=== PATIENT | male | born 1960 | race Caucasian/White ===

== ENCOUNTER 2020-02-23 07:30 | Inpatient (IN) | payer BC ==
[2020-03-12 16:11] VITALS: BMI 39.5
[2020-03-16] MEDS ORDERED: MIDAZOLAM 2 MG/2 ML VIAL IV PRN (07:00)
[2020-03-16] MEDS ORDERED: LIDOCAINE 1% (10MG/ML) FOR IV START INTRADERMA PRN (18:17)
[2020-03-16] MEDS ORDERED: DEXAMETHASONE SOD PHOSPHATE 4 MG/ML 1 ML VIAL IV ONE (18:17)
[2020-03-17] MEDS ORDERED: ceFAZolin 1,000 MG in SODIUM CHLORIDE 0.9% IRRIGATIO 1,000 ML IRRIGATION PRN (05:00)
[2020-03-17] MEDS ORDERED: HYDROmorphone 0.5 MG/0.5 ML SYRINGE IVP PRN (07:00)
[2020-03-17] MEDS ORDERED: ONDANSETRON 4 MG/2 ML VIAL ONE (07:03)
[2020-03-17] MEDS: LACTATED RINGERS 1,000 ML IV SCH ×2 (07:10→18:04)
[2020-03-17 07:22] LABS: Glucose,Whole Blood 154 mg/dL (75-99)
[2020-03-17] MEDS ORDERED: ROCURONIUM 10 MG/ML (5 ML VIAL) IV ONE (07:27)
[2020-03-17] MEDS ORDERED: PHENYLEPHRINE-0.9% NACL SYG 1,000 MCG/10 ML SYRINGE ONE (07:27)
[2020-03-17] MEDS ORDERED: NEOSTIGMINE 1 MG/ML 10 ML VIAL ONE (07:27)
[2020-03-17] MEDS ORDERED: WATER FOR INJECTION, STERILE 10 ML VIAL IV ONE (07:27)
[2020-03-17] MEDS ORDERED: VASOPRESSIN 20 UNIT/ML 1 ML VIAL ONE (07:27)
[2020-03-17] MEDS ORDERED: GLYCOPYRROLATE 0.2 MG/ML 2 ML VIAL ONE (07:27)
[2020-03-17] MEDS ORDERED: fentaNYL (PF) 50 MCG/ML 2 ML AMP ONE (07:27)
[2020-03-17] MEDS ORDERED: LIDOCAINE 1% INJ 10MG/ML (20 ML MDV) ONE (07:27)
[2020-03-17] MEDS ORDERED: PROPOFOL 10 MG/ML 20 ML VIAL IV ONE (07:27)
[2020-03-17] MEDS ORDERED: SUCCINYLCHOLINE CHLORIDE 100 MG/5 ML SYR IV ONE (07:27)
[2020-03-17] MEDS ORDERED: MIDAZOLAM 2 MG/2 ML VIAL ONE (07:27)
[2020-03-17] MEDS ORDERED: HYDROmorphone (PF) 1 MG/ML ONE (07:27)
[2020-03-17] MEDS ORDERED: ePHEDrine SULFATE/0.9% NACL/PF 50 MG/5 ML SYRINGE IV ONE (07:27)
[2020-03-17] MEDS ORDERED: BUPIVACAINE (PF) 0.25% 30 ML VIAL SQ ONE (08:17)
[2020-03-17] MEDS ORDERED: LIDOCAINE 2%-EPI 1:100,000 20 ML VIAL SQ ONE (08:17)
[2020-03-17] MEDS ORDERED: THROMBIN (BOVINE) 5,000 UNIT VIAL TOPICAL ONE (08:21)
[2020-03-17] MEDS ORDERED: GELATIN SPONGE,ABSORB (LARGE) 1 EACH SPONGE TOPICAL ONE (08:21)
[2020-03-17] MEDS ORDERED: LACTATED RINGERS 1,000 ML IV ONE (08:30)
[2020-03-17] MEDS ORDERED: ONDANSETRON 4 MG/2 ML VIAL IVP PRN (10:29)
[2020-03-17] MEDS ORDERED: HYDROcodone/APAP 5-325MG 1 EACH TAB PO PRN (10:29)
--- NOTE | 2020-03-17 10:30 | XR ---
EXAM TYPE: LUMBAR SPINE X RAY SERIES COMPARISON: NONE HISTORY: Postsurgical changes TECHNIQUE: 2 views are submitted. FINDINGS: 2 intraoperative views demonstrate postsurgical changes. Resolution is limited by portable technique. Postsurgical changes appear in near-anatomic alignment. IMPRESSION: 1. Postoperative change
[2020-03-17] MEDS ORDERED: MAGNESIUM HYDROXIDE 2,400 MG/10 ML CUP PO PRN (10:32)
[2020-03-17] MEDS ORDERED: HYDROmorphone 1 MG/ML 1 ML SYRINGE IVP PRN (10:32)
--- NOTE | 2020-03-17 10:37 | P.OP ---
Date of Procedure: 03/17/20 Preoperative Diagnosis: Spondylolisthesis L3 4, spinal stenosis L3 4, degenerative disc disease, low back pain, lower extremity radiculopathy Postoperative Diagnosis: Same Anesthesia: GETA Pathology: none sent Condition: stable Disposition: PACU Description of Procedure: DESCRIPTION OF PROCEDURE(S): BRIEF OPERATIVE NOTE Preoperative Diagnosis: Spondylolisthesis L3 4 , spinal stenosis , lower extremity radiculopathy, lower extremity weakness, neurogenic claudication, low back pain, degenerative disc disease Postoperative Diagnosis: Same Procedure: Laminectomy and decompression L3 [address] navigation aided Minimally invasive Posterior lateral decompression and facet fusion L3 4 Minimally invasive Transforaminal lumbar interbody fusion for a 360 fusion L3 4 Discectomy for decompression L3 4 Placement of interbody graft L3 4 Use of computer navigation for fusion Local autogenous bone grafting Aspiration of bone marrow from the vertebral body pedicle L3 on the right Use of bone graft extenders Surgeon: Dr. Forrest Braille Operator: Kalia NAJERA who is present throughout the entire the case persistence during positioning, dissection, exposure, visualization, and all crucial elements of the case as well as closure. Anesthesia: General anesthesia per Estimated blood loss: Approximately 200 mL Complications: None apparent Components implanted: K2M minimally invasive Raymond pedicle screw system withscrews measuring 6.5 mm in diameter to rods one [place] interbody cage with 10 mL of osteo amp bio4 bone graft substitute and 30 mL of the BX bone fibers to supplement the local autogenous bone graft and bone marrow aspirate Disposition: To recovery room in good stable condition. OPERATIVE INDICATIONS The patient has had severe issues at their lower extremity in her lower back over the past several years with significant worsening over the past several months. Over the past few months the patient had pain at her back and his right lower extremity. The patient is having radicular symptoms at his right lower extremity with weakness. The patient is having significant pain in her back. They are unable to obtain any comfort. We did aggressive conservative treatment with medications therapy and interventional pain management however she was not having any relief. The patient had a significant spondylolisthesis with severe degenerative changes at L3 4 with stenosis which correlated with his low back and lower extremity symptoms. The patient also showed evidence of a listhesis with some dynamic instability. The patient has been through conservative treatment. We discussed various treatment options including surgery, and the patient wishes to proceed with surgery We discussed the risk, patient's alternatives and benefits of surgery including but not limited to, ris k of bleeding risk of infection, risk of need for further surgery, risk of decreased, loss of motion, muscle function, malunion nonunion, hardware failure, nerve damage, paralysis, heart attack, blindness and . They understood issues with the current pandemic and the possibility of exposure. OPERATIVE SUMMARY After discussing all the risks, patient alternatives and benefits at length, the patient elected to proceed with surgical intervention, signed informed consent, and presented for their procedure. The patient was seen and examined in the preoperative holding area and the surgical site was marked. The patient was given antibiotics and brought to the operating room. The patient was sedated and intubated by anesthesia in standard fashion. The patient was positioned on to the operating room table in a prone position on the appropriate frame which was well-padded and well molded. We were careful to pad any bony prominences and pressure points. We were careful to maintain the patient's cervical spine and good neutral alignment and position throughout. The patient was prepped and draped in a normal standard fashion. An appropriate timeout and keystone protocol performed. We were able to proceed with the surgery. The local wound area was infiltrated with local anesthetic. Over the right iliac crest I was able to make small stab incisions and establish a guidepin screw fixation to the iliac crest 2. I was able place the computer referencing device over the guidepins to establish an appropriate reference point for the Ziem CT navigation. We then were able to place patient in an appropriate drape and do a navigation spin for visualization and 3-D reconstruction of the lumbar spine. I was able utilize C-arm guidance and navigation to establish appropriate position over the pedicles bilaterally at the appropriate levels at L3 4. With the appropriate levels confirmed was able to make small stab incisions over the appropriate pedicle sites bilaterally. Utilizing the computer navigation device I was able to establish bony landmarks at the right iliac crest for a bony reference point for the navigation device. I was able to establish a Jamshidi needle over the lateral aspect of the pedicle and advanced the trocar into the pedicle being careful not to breech superiorly inferiorly medially or laterally using computer navigation device. Position was confirmed regularly with AP and lateral images on C-arm and with the computer navigation device at the appropriate levels bilaterally. I was able to establish the trocar into the pedicle appropriately into the posterior aspect of the vertebral body bilaterally at the appropriate levels. This was done at each of the pedicle positions and each of the vertebrae. At the superior vertebrae of L3 on the right I was able to take approximately 25 mL of bone aspiration for use later in the case to supplement the allograft and autograft bone. I was able place the guidewire into the trocar and into the vertebral body appropriately under C-arm guidance. Dissection was taken down over the wire to the appropriate starting position for the screw placed. The appropriate length screw was chosen, threaded over the guidewire and screwed appropriately into the pedicle and vertebral body under C-arm guidance in excellent alignment and position with good bony purchase. This is done at each of the screw sites at the appropriate levels at L3 and L4 bilaterally. With the screws intact I extended the incision to connect the screw hole sites on the most symptomatic side on the right. I dissected down to establish access over the pars and lamina to the base of the spinous process. I was able to expose the facet joint. The capsule the facet was taken down and showed some facet arthrosis at the joint. I was able to use a combination of curettes and Kerrison rongeurs and a high-speed drill to take down the facet joint and do a facetectomy. I was able get excellent foraminal decompression and central decompression with undermining across midline to perform a laminectomy centrally and contralaterally. As able get good central decompression. The ligamentum flavum was taken down to further decompress centrally and at bilateral neural foramen. I was able to expose the disc space and visualize the traversing nerve root. Note was made of some disc protrusion and disc herniation that was abutting the traversing nerve root at the level causing further compression of the nerve root. I was able to establish a annulotomy at the appropriate level protecting soft tissue and neural structures. Note was made of some disc desiccation at the disc. I performed a complete discectomy with accommodation of curettes and rasps and scrapers. I was able get good endplate preparation at the disc space. I sized for the appropriate size interbody spacer protecting the soft tissue and neural structures. The wound was copiously irrigated and suctioned dry. There is no evidence of any dural tear or leak. I was able to pack the disc space with local autogenous bone graft as well as a small amount of bone graft which was also placed into the interbody cage itself. Protecting the soft tissue structures and neural structures I was able place the interbody cage in good alignment and good position with good fit and fill at the interbody space at L3 and L4. Position was confirmed with C-arm guidance. Good hemostasis maintained. There is no evidence of any dural tear or leak. The wound was irrigated and suctioned dry. With the hardware intact, intraoperative C-arm imaging was again taken which showed good alignment and position of the hardware at the appropriate levels. We were then able to measure, contour and place the rods and appropriate hardware bilaterally. I was able to place capcrews, tighten them down, and torque them with the torque screwdriver appropriately. With this intact I was able to place the local autogenous bone graft with additional bone graft en hancer as necessary into the posterior lateral gutters over the decorticated transverse processes and facet joints on the contralateral side. The remainder of the bone graft was placed over the facet joint on the contralateral side after taking down the facet joint capsule. With the bone graft intact, a stable construct, and good decompression at the appropriate levels of L3 4, we were able to proceed with closure. Good hemostasis was maintained. There is no evidence of dural tear or leak. The fascia was closed for a watertight closure. he subcuticular tissue was closed with absorbable suture. The wound was cleaned and dried and dressed with the appropriate dressing. The drapes were broken down. The patient was gently rolled back onto their hospital bed being careful to maintain their cervical spine and good neutral alignment and position. They were woken up by anesthesia, extubated, and brought to the recovery room in good stable condition. The patient will be admitted to the hospital for appropriate postoperative care, medical management and monitoring. We will continue to follow them closely about the postoperative course.
--- NOTE | 2020-03-17 10:42 | FL ---
EXAMINATION TYPE: FL guidance operating room DATE OF EXAM: 03/17/2020 HISTORY: Fluoroscopy time 18 seconds of fluoroscopy provided. IMPRESSION: 1. Fluoroscopy time.
[2020-03-17 10:50] LABS: Glucose,Whole Blood 198 mg/dL (75-99)
[2020-03-17] MEDS: SODIUM CHLORIDE 0.9% 1,000 ML IV SCH (11:35)
[2020-03-17] MEDS: HYDROmorphone 0.5 MG/0.5 ML SYRINGE IVP PRN ×2 (14:19→19:52)
[2020-03-17 17:08] LABS: Glucose,Whole Blood 177 mg/dL (75-99)
[2020-03-17] MEDS: lisinopriL 20 MG TAB PO SCH (19:47)
[2020-03-17] MEDS: BENZOCAINE/MENTHOL LOZENG 1 EACH LOZENGE MUCOUS MEM PRN ×2 (19:47→23:11)
[2020-03-17] MEDS: metFORMIN 500 MG TAB PO SCH (19:47)
[2020-03-17 20:29] LABS: Glucose,Whole Blood 270 mg/dL (75-99)
[2020-03-17] MEDS ORDERED: PRAVASTATIN SODIUM 20 MG TAB PO SCH (21:00)
[2020-03-17] MEDS: HYDROcodone/APAP 5-325MG 1 EACH TAB PO PRN (23:11)
[2020-03-18] MEDS: SODIUM CHLORIDE 0.9% 1,000 ML IV SCH (02:07)
[2020-03-18] MEDS: BENZOCAINE/MENTHOL LOZENG 1 EACH LOZENGE MUCOUS MEM PRN ×2 (03:08→07:37)
[2020-03-18 06:53] LABS: Glucose,Whole Blood 169 mg/dL (75-99)
[2020-03-18 07:24] VITALS: BP 137/99; PULSE 118; RESP 25; TEMP 99.2
[2020-03-18] MEDS ORDERED: PANTOPRAZOLE 40 MG TABLET PO SCH (07:30)
[2020-03-18] MEDS: HYDROcodone/APAP 5-325MG 1 EACH TAB PO PRN (07:38)
--- NOTE | 2020-03-18 08:00 | P.DS ---
Providers Date of admission: 03/17/20 06:30 Attending physician: Dari Forrest Consults: 03/17/20 17:16 Consult Physician Routine Consulting Provider: Darian Malik Consult Reason/Comments: medical management Do you want consulting provider notified?: Yes Primary care physician: Stated None Hospital Course: The patient presented on the day of admission as per their operative note. He has spondylolisthesis and spinal stenosis L3 4 and has been having severe issues from this. He presented on his day of admission yesterday for his procedure with minimally invasive decompression and fusion L3 4 as per his operative note. He feels his back is sore but is doing well. He is already been up to the side of the bed but has not been up yet with physical therapy. He is tolerating his diet. He feels he is taking his oral medications regularly but they're helping to control his pain adequately. He still has his Benavides intact. He feels his legs are doing well. He is eating his breakfast and tolerating it well currently. Physical Exam The incision site is clean dry and intact. There is no erythema no drainage. There is no purulence no evidence of infection. No significant swelling. His b ack is clear Abdomen soft and nontender. Chest has good excursion with deep inspiration and expiration. The patient has active and passive range of motion intact at the upper and lower extremities. There is no acute change in neurologic status. He has sustained dorsiflexion plantar flexion and EHL intact. He is able to lift his legs up off the bed independently. Hospital Course Postoperative day #1 status post minimally invasive decompression and fusion L3 4 for his spondylolisthesis with spinal stenosis and lower extremity radiculopathy The patient feels that his legs are doing well. His back is sore but he feels that the pain is controlled decent slightly with medication. He has not yet been up with physical therapy. He still has his Benavides intact. The patient has been making good progress postoperatively. If he is able to mobilize adequately and independently once he is seen with therapy and he can void freely once his Benavides is discontinued and he may be able to be discharged home today. When he has completed the prophylactic antibiotics without any signs or symptoms of infection later today when his antibiotic can be discontinued. The patient has been able to advance their diet, and is tolerating diet adequately. The pain was initially controlled with IV medications and is now controlled appropriately with oral medications. The patient has been able to increase their mobilization. If he can continues to make progress and continues to be independent with his mobility and he could be discharged home. If he is not able to void well or be independent with his ambulation then he needs to stay overnight tonight for continued recovery and safety The patient has progressed appropriately thus far. I think they are in good stable condition for possible discharge today, if he is able to void freely on his own and mobilize well on his own once he is seen with physical therapy. They will be sent home with appropriate prescriptions. I answered their questions to the best of my ability in a language that they can understand and they are agreeable with the plan. They will follow up as directed in approximately 2 weeks or sooner if he is having problems. Patient Condition at Discharge: Good Plan - Discharge Summary Discharge Rx Participant: Yes New Discharge Prescriptions: New HYDROcodone/APAP 5-325MG [[place] 5] 1 - 2 each PO Q4H PRN #56 tab PRN Reason: Pain No Action metFORMIN HCL [Metformin HCl ER] 500 mg PO BID Pravastatin Sodium [Pravachol] 20 mg PO HS Aspirin [Adult Low Dose Aspirin EC] 81 mg PO BID Pantoprazole Sodium [Protonix] 40 mg PO DAILY Celecoxib [CeleBREX] 200 mg PO DAILY lisinopriL [Zestril] 20 mg PO BID Trulicity(Unknown Dose) SQ SA Discharge Medication List Aspirin [Adult Low Dose Aspirin EC] 81 mg PO BID 07/26/15 [History] Pravastatin Sodium [Pravachol] 20 mg PO HS 07/26/15 [History] metFORMIN HCL [Metformin HCl ER] 500 mg PO BID 07/26/15 [History] Celecoxib [CeleBREX] 200 mg PO DAILY 03/12/20 [History] Pantoprazole Sodium [Protonix] 40 mg PO DAILY 03/12/20 [History] Trulicity(Unknown Dose) SQ SA 03/12/20 [History] lisinopriL [Zestril] 20 mg PO BID 03/12/20 [History] HYDROcodone/APAP 5-325MG [[place] 5] 1 - 2 each PO Q4H PRN #56 tab 03/18/20 [Rx] Follow up Appointment(s)/Referral(s): Pasia,E Christian, DO [Doctor of Osteopathic Medicine] - 2 Weeks Discharge Disposition: HOME SELF-CARE
[2020-03-18 08:48] LABS: Basophils # (A) 0.02 X 10*3/uL (0.00-0.10); Basophils % (A) 0.2 %; Eosinophils # (A) 0.01 X 10*3/uL (0.04-0.35); Eosinophils % (A) 0.1 %; HCT 37.9 % (39.6-50.0); HGB 12.7 g/dL (13.0-17.0); Lymphocytes # (A) 0.81 X 10*3/uL (0.90-5.00); Lymphocytes % (A) 7.5 %; MCH 30.5 pg (27.0-32.0); MCHC 33.5 g/dL (32.0-37.0); MCV 90.9 fL (80.0-97.0); Mean Platelet Volume 11.1 fL (9.5-12.2); Monocytes # (A) 0.71 X 10*3/uL (0.20-1.00); Monocytes % (A) 6.6 %; Neutrophils # (A) 9.18 X 10*3/uL (1.80-7.70); Neutrophils % (A) 85.2 %; Platelet Count 187 X 10*3/uL (140-440); RBC 4.17 X 10*6/uL (4.40-5.60); RDW 14.1 % (11.5-14.5); WBC 10.77 X 10*3/uL (4.50-10.00)
[2020-03-18] MEDS ORDERED: SENNOSIDES-DOCUSATE SODIUM 1 EACH TAB PO SCH (09:00)
[2020-03-18 09:27] LABS: African American GFR (CKD) 94.4 (60.0-200.0); Anion Gap 9.5 mmol/L (4.00-12.00); Calcium 8.7 mg/dL (8.7-10.3); Carbon Dioxide 25.5 mmol/L (21.6-31.8); Non-African American GFR(CKD) 81.4 (60.0-200.0); Potassium 4.8 mmol/L (3.5-5.5)
[2020-03-18] MEDS: metFORMIN 500 MG TAB PO SCH (10:12)
[2020-03-18] MEDS: lisinopriL 20 MG TAB PO SCH (10:12)
[2020-03-18] MEDS ORDERED: ASPIRIN 81 MG PO SCH (21:00)
== END 2020-03-18 13:22 | disposition home or self-care (01) | DRG 455 ==
LOC: 2ORMAIN 03-17 06:30 → 4SSUR 03-17 11:05
PROVIDERS: ADMIT Orthopaedic Surgery Orthopaedic Surgery of the Spine; ATTEND Orthopaedic Surgery Orthopaedic Surgery of the Spine
PROC: 0SG00AJ Fusion of Lumbar Vertebral Joint with Interbody Fusion Device, Posterior Approach, Anterior Column, Open Approach (ICD-10-PCS; 2020-03-17)
PROC: 0ST20ZZ Resection of Lumbar Vertebral Disc, Open Approach (ICD-10-PCS; 2020-03-17)
PROC: 01NB0ZZ Release Lumbar Nerve, Open Approach (ICD-10-PCS; 2020-03-17)
PROC: 0SG0071 Fusion of Lumbar Vertebral Joint with Autologous Tissue Substitute, Posterior Approach, Posterior Column, Open Approach (ICD-10-PCS; principal; 2020-03-17 07:30)
DX: M48.062 Spinal stenosis, lumbar region with neurogenic claudication (principal); E11.9 Type 2 diabetes mellitus without complications; M47.816 Spondylosis without myelopathy or radiculopathy, lumbar region; M47.817 Spondylosis without myelopathy or radiculopathy, lumbosacral region; M51.16 Intervertebral disc disorders with radiculopathy, lumbar region; M43.16 Spondylolisthesis, lumbar region; I10 Essential (primary) hypertension; E78.5 Hyperlipidemia, unspecified; K21.9 Gastro-esophageal reflux disease without esophagitis; Z79.82 Long term (current) use of aspirin; Z79.84 Long term (current) use of oral hypoglycemic drugs; Z79.899 Other long term (current) drug therapy; Z87.891 Personal history of nicotine dependence
CPT/HCPCS: 72100; 80048; 85025; 86850; 86900; 86901; 87070

== ENCOUNTER → 2020-03-02 | Outpatient (CLI) | payer BC ==
--- NOTE | 2020-03-02 14:04 | XR ---
EXAMINATION TYPE: XR chest 2V DATE OF EXAM: 03/02/2020 COMPARISON: NONE HISTORY: Spinal stenosis, Z01.818 TECHNIQUE: Frontal and lateral views of the chest are obtained. FINDINGS: There is no focal air space opacity, pleural effusion, or pneumothorax seen. The cardiac silhouette size is within normal limits. The osseous structures are intact. The aorta is dense. IMPRESSION: No acute cardiopulmonary process.
== END | disposition home or self-care (01) ==
LOC: LABPAT 10:44
PROVIDERS: ATTEND Orthopaedic Surgery Orthopaedic Surgery of the Spine
DX: Z01.818 Encounter for other preprocedural examination (principal); M48.00 Spinal stenosis, site unspecified
CPT/HCPCS: 71046; 93005

== ENCOUNTER → 2020-03-10 | Outpatient (CLI) | payer SELFPAY ==
[2020-03-10 15:24] LABS: Appearance,Urine Clear (Clear); Basophils # (A) 0.1 k/uL (0-0.2); Basophils % (A) 1 %; Bilirubin,Urine Negative (Negative); Blood,Urine Negative (Negative); Color,Urine Yellow; Eosinophils # (A) 0.2 k/uL (0-0.7); Eosinophils % (A) 5 %; Glucose,Urine (UA) Negative (Negative); HCT 41.2 % (39.0-53.0); HGB 14.3 gm/dL (13.0-17.5); Ketones,Urine Negative (Negative); Leukocyte Esterase,Urine Negative (Negative); Lymphocytes # (A) 1.4 k/uL (1.0-4.8); Lymphocytes % (A) 27 %; MCH 30.8 pg (25.0-35.0); MCHC 34.7 g/dL (31.0-37.0); MCV 88.8 fL (80.0-100.0); Mean Platelet Volume 7.9; Monocytes # (A) 0.3 k/uL (0-1.0); Monocytes % (A) 6 %; Neutrophils # (A) 2.9 k/uL (1.3-7.7); Neutrophils % (A) 58 %; Nitrite,Urine Negative (Negative); Platelet Count 179 k/uL (150-450); Protein,Urine Negative (Negative); RBC 4.63 m/uL (4.30-5.90); RDW 13.9 % (11.5-15.5); Specific Gravity,Urine 1.019 (1.001-1.035); Urobilinogen,Urine <2.0 mg/dL (<2.0)
[2020-03-10 15:32] LABS: INR 0.9 (<1.2); Partial Thromboplastin Time 23.2 sec (22.0-30.0); Prothrombin Time 9.8 sec (9.0-12.0)
[2020-03-10 15:42] LABS: African American GFR (CKD) >90 (>60 ml/min/1.73 sqM); Anion Gap 9 mmol/L; Blood Urea Nitrogen 25 mg/dL (9-20); Calcium 9.4 mg/dL (8.4-10.2); Carbon Dioxide 26 mmol/L (22-30); Chloride 103 mmol/L (98-107); Glucose 130 mg/dL (74-99); Non-African American GFR(CKD) >90 (>60 ml/min/1.73 sqM); Potassium 4.7 mmol/L (3.5-5.1); Sodium 138 mmol/L (137-145)
== END | disposition home or self-care (01) ==
LOC: LABPAT 14:00
PROVIDERS: ATTEND Orthopaedic Surgery Orthopaedic Surgery of the Spine
DX: Z01.818 Encounter for other preprocedural examination (principal); M48.00 Spinal stenosis, site unspecified
CPT/HCPCS: 36415; 80048; 81003; 85025; 85610; 85730

== ENCOUNTER → 2020-03-15 | Outpatient (CLI) | payer BC | END | disposition home or self-care (01) | LOC: LABPAT 12:32 | PROVIDERS: ATTEND Orthopaedic Surgery Orthopaedic Surgery of the Spine | DX: Z01.812 Encounter for preprocedural laboratory examination (principal) | CPT/HCPCS: 87070 ==

== ENCOUNTER → 2020-06-18 | Outpatient (CLI) | payer BC | END | disposition home or self-care (01) | LOC: LABWHC1 15:22 | PROVIDERS: ATTEND Physician Assistant Medical | DX: I10 Essential (primary) hypertension (principal); R07.9 Chest pain, unspecified | CPT/HCPCS: 36415; 93005 ==

== ENCOUNTER 2020-10-01 06:31 | Day surgery (SDC) | payer BC ==
[2020-09-28 15:16] VITALS: BMI 41.9
[~2020-10-01 06:31] MED LIST: ALPRAZolam 0.25 MG TAB PO PRN; ALPRAZolam 0.5 MG TAB PO PRN; ASPIRIN 325 MG TAB PO STA; ATORVASTATIN 80 MG TAB PO STA; NITROGLYCERIN SL TABS 0.4 MG TAB SUBLINGUAL PRN; SODIUM CHLORIDE 0.9% 1,000 ML in EMPTY BAG 1 BAG IV ONE
[2020-10-01] MEDS ORDERED: SODIUM CHLORIDE 0.9% 1,000 ML IV ONE (06:45)
[2020-10-01 07:01] LABS: Glucose,Whole Blood 166 mg/dL (75-99)
[2020-10-01 07:06] VITALS: RESP 16; TEMP 98.9
[2020-10-01] MEDS ORDERED: VERAPAMIL 2.5 MG/ML 2 ML AMP ONE (07:20)
[2020-10-01] MEDS ORDERED: LIDOCAINE 1% INJ 10MG/ML (20 ML MDV) ONE (07:20)
[2020-10-01] MEDS ORDERED: fentaNYL (PF) 50 MCG/ML 2 ML AMP ONE (07:55)
[2020-10-01] MEDS ORDERED: fentaNYL (PF) 50 MCG/ML 2 ML AMP IV ONE ×2 (07:59)
[2020-10-01] MEDS ORDERED: MIDAZOLAM 2 MG/2 ML VIAL IV ONE (07:59)
[2020-10-01] MEDS ORDERED: LIDOCAINE 1% INJ 10MG/ML (20 ML MDV) SQ ONE (08:00)
[2020-10-01] MEDS ORDERED: VERAPAMIL SYRINGE (5 MG/10 ML) INTRAARTER ONE (08:05)
[2020-10-01] MEDS ORDERED: HEPARIN SODIUM 1,000 UN/ML (10ML VL) ONE (08:06)
[2020-10-01] MEDS ORDERED: HEPARIN SODIUM 1,000 UN/ML (10ML VL) IV ONE (08:10)
[2020-10-01] MEDS ORDERED: IOPAMIDOL-370 125ML BTL INJ ONE (08:23)
[2020-10-01] MEDS ORDERED: RX INFO: IV CONTRAST WAS GIVEN 1 EACH MISC MISCELLANE PRN (08:33)
--- NOTE | 2020-10-01 08:41 | P.CARDCATH ---
Date of Procedure: 10/01/20 Preoperative Diagnosis: Chest pains, nonsustained V. tach and multiple risk factors Postoperative Diagnosis: Normal coronary arteries Procedure(s) Performed: Left heart catheterization without left ventriculography Description of Procedure: HISTORY: This is a 59-year-old gentleman with history of hypertension, diabetes mellitus and hypercholesterolemia who was recently seen with complaints of chest pain and palpitations. Patient's stress test was negative for ischemia. However monitoring showed episodes of nonsustained V. tach. In view of that patient is advised to have cardiac catheterization for definitive diagnosis. Patient family were explained the risks and benefits of the procedure CONSENT:I have discussed the risks, benefits and alternative therapies for the above-mentioned procedure and for both sedation/analgesia as well as necessary blood product administration, if indicated, as they pertain to this patient. The patient has indicated understanding and acceptance of the risks and procedures discussed. PROCEDURE: Patient was brought to the lab in a fasting state. Patient was given some IV sedation. The right wrist is infiltrated with lidocaine and right radial artery was entered using Seldinger technique. A 6-Tajik catheter was left in place and selective coronary arteriography performed. Patient tolerated the procedure well. TR band was applied for hemostasis. No immediate complications were noted and patient was transferred to [facility] in a stable condition Conscious Sedation: Versed 1mg Fentanyl 25 g Duration 27minutes HEMODYNAMICS: Aortic pressure is about 110/70. SELECTIVE CORONARY ARTERIOGRAPHY: LEFT MAIN: There is no left main. The left anterior descending and left the circumflex coronary artery arising separately separate ostia THE LEFT ANTERIOR DESCENDING CORONARY ARTERY: This is a good caliber vessel giving rise to good-sized first diagonal branch and septal branch the LAD and branches are free of occlusive disease THE LEFT CIRCUMFLEX AND IS CORONARY ARTERY:. This is a dominant vessel giving rise to PDA and PLV branches and small OM branches free of any occlusive disease THE RIGHT CORONARY ARTERY:. This is a nondominant vessel free of occlusive disease LEFT VENTRICULOGRAPHY: Not performed FINAL IMPRESSION:. Normal coronary arteries PLAN:. Continued medical therapy. It if patient continues to have symptomatic palpitations, May consider EP evaluation and ablation PROGNOSIS: Fair
[2020-10-01] MEDS ORDERED: SODIUM CHLORIDE 0.9% 1,000 ML IV SCH (08:45)
[2020-10-01 10:20] VITALS: PULSE 85
[2020-10-01 12:17] VITALS: BP 138/82
== END 2020-10-01 12:00 | disposition home or self-care (01) ==
LOC: CATHCVL 06:31
PROVIDERS: ATTEND Internal Medicine Cardiovascular Disease
DX: R07.89 Other chest pain (principal); I47.2 Ventricular tachycardia; I10 Essential (primary) hypertension; E11.9 Type 2 diabetes mellitus without complications; E78.00 Pure hypercholesterolemia, unspecified; Z82.49 Family history of ischemic heart disease and other diseases of the circulatory system; F17.210 Nicotine dependence, cigarettes, uncomplicated; Z79.82 Long term (current) use of aspirin; Z79.899 Other long term (current) drug therapy
CPT/HCPCS: 93454; C1894; J2250; J2001; J3010; J1644; Q9967

== ENCOUNTER → 2022-12-15 | Outpatient (CLI) | payer BC ==
--- NOTE | 2022-12-15 12:31 | NM ---
EXAMINATION TYPE: NM stress cardiolite complete DATE OF EXAM: 12/15/2022 COMPARISON: NONE CLINICAL INDICATION: Male, 62 years old with history of I49.8 ARRHYTHMIA R06.02 SOB; TECHNIQUE: After the intravenous administration of 9.63 mCi Tc 99m Sestamibi - Rest images obtained 45 minutes post injection. The patient exercised using a VALERIE protocol and 1 minute prior to peak exercise was injected with 26.2 mCi Tc 99m Sestamibi - Stress images obtained 10 minutes post injecti on. FINDINGS: Targeted heart rate was achieved during performance of the study. Review of stress and rest SPECT surinder ges demonstrates somewhat reduced fixed uptake involving the inferior myocardium. Tiny area of stress -induced reversibility not excluded. Gated analysis shows normal wall motion with an estimated left ventricular ejection fraction of 54 %. IMPRESSION: 1. Cannot exclude a tiny area of stress-induced reversibility involving apex myocardium A Yellow level critical message alert has been initiated for Erin Malik DO via the [employer] Critical Results System on 12/15/2022 12:28 PM. This message alert has been sent to [facility] via the preferences provided by the clinician for the receipt of Radiology Critical Findings. [employer] ID [id number].
--- NOTE | 2022-12-15 12:40 | CA ---
Exercise Nuclear Stress Test Report Name: Jaime Szymanski Exam Date: 12/15/2022 10:35 Exam Location: [place] Stress Ht (in): 66 Wt (lb): 260 BSA: 2.24 Ordering Phys: Erin Malik DO Referring Phys: Stacey Boykin PAC Technologist: Christian Wing Age: 62 Gender: M : 1960 Procedure CPT: Indications: I49.8 ARRHYTHMIA R06.02 SOB ICD-10 Codes: Patient History: Medications: LISINOPRIL, PANTOPRAZOLE, CEBECOXIB, METFORMIN, ASPIRIN Meds past 24 hrs: Pretest Chest Pain: STRESS TEST Antoine Protocol Exercise Duration (min:sec): 04:[address] Depressions (mm): Angina Score: Mace Score: Resting HR (bpm): 96 Peak HR (bpm): 143 Resting BP (mmHg): 140 / 82 Peak BP (mmHg): 194 / 96 MPHR: 157 Target HR: 133 % MPHR: 91 METS: 6.5 Total Dose: Peak Dose: Atropine: Double Product: 10291 BP Response: Stress Termination: Reached target heart rate Stress Symptoms: SHORTNESS OF BREATH Stress Summary: The patient's target heart rate was achieved , The hemodynamic response to exercise was normal ECG ANALYSIS Resting ECG: Sinus rhythm. Normal conduction. No arrhythmias. Normal repolarization. Stress ECG: No ECG evidence of ischemia with exercise. Ventricular premature contraction. CONCLUSIONS 1. Decrease exercise tolerance 2. Normal electrocardiographic response to exercise 3. Nuclear images will be reported separately Dr. Ko Cleveland MD (Electronically Signed) Final Date: 15 December 2022 12:39
== END | disposition home or self-care (01) ==
LOC: RADNMMAIN 09:12
PROVIDERS: ATTEND Family Medicine
DX: I49.8 Other specified cardiac arrhythmias (principal); I10 Essential (primary) hypertension; R06.02 Shortness of breath; R42 Dizziness and giddiness
CPT/HCPCS: 93017; 78452; A9500

== ENCOUNTER → 2023-05-23 | Outpatient (CLI) | payer BC ==
[2023-05-23 18:46] LABS: HCT 38.1 % (39.6-50.0); HGB 13.1 g/dL (13.0-17.0); MCH 31.1 pg (27.0-32.0); MCHC 34.4 g/dL (32.0-37.0); MCV 90.5 FL (80.0-97.0); Mean Platelet Volume 11.3 FL (9.5-12.2); NRBC Per 100 WBC 0 X 10*3/uL (0.00-0.01); Platelet Count 197 X 10*3/uL (140-440); RBC 4.21 X 10*6/uL (4.40-5.60); RDW 14.2 % (11.5-14.5); WBC 5.85 X 10*3/uL (4.50-10.00)
[2023-05-23 20:13] LABS: Blood Urea Nitrogen 26.3 mg/dL (9.0-27.0); Carbon Dioxide 21.8 mmol/L (21.6-31.8); Chloride 103 mmol/L (96-109); Potassium 4.3 mmol/L (3.5-5.5); Sodium 139 mmol/L (135-145)
== END | disposition home or self-care (01) ==
LOC: LABPAT 15:50
PROVIDERS: ATTEND Internal Medicine Clinical Cardiac Electrophysiology
DX: Z01.818 Encounter for other preprocedural examination (principal); I47.10 Supraventricular tachycardia, unspecified; I47.20 Ventricular tachycardia, unspecified
CPT/HCPCS: 80051; 82565; 84520; 85027

== ENCOUNTER 2023-05-28 07:51 | Day surgery (SDC) | payer BC ==
[2023-05-24 16:37] VITALS: BMI 42.3
[2023-05-28] MEDS: SODIUM CHLORIDE 0.9% 1,000 ML IV SCH (08:17)
[2023-05-28 08:21] LABS: Glucose,Whole Blood 219 mg/dL (70-110)
[2023-05-28] MEDS ORDERED: MIDAZOLAM 2 MG/2 ML VIAL ONE (09:57)
[2023-05-28] MEDS ORDERED: hydrALAZINE HCL 20 MG/ML 1 ML VIAL ONE (09:57)
[2023-05-28] MEDS ORDERED: diphenhydrAMINE 50 MG/ML 1 ML VIAL ONE (09:57)
[2023-05-28] MEDS ORDERED: fentaNYL (PF) 50 MCG/ML 2 ML AMP ONE (09:57)
[2023-05-28] MEDS ORDERED: ISOPROTERENOL 250 MCG/1.25 ML SYR IV ONE (09:57)
[2023-05-28] MEDS ORDERED: HYDROmorphone (PF) 1 MG/ML ONE (09:57)
[2023-05-28] MEDS ORDERED: PROPOFOL 10 MG/ML 20 ML VIAL IV ONE (09:57)
[2023-05-28] MEDS ORDERED: LIDOCAINE 1% INJ 10MG/ML (20 ML MDV) ONE ×2 (10:22→10:42)
[2023-05-28] MEDS: LIDOCAINE 1% INJ 10MG/ML (20 ML MDV) SQ ONE ×2 (10:41→10:51)
[2023-05-28] MEDS: HEPARIN SODIUM (1,000 UNIT/ML) 1,000 UNIT in SODIUM CHLORIDE 0.9% 1,000 ML IRRIGATION ONE (11:30)
--- NOTE | 2023-05-28 13:29 | P.HPCAR ---
History of Present Illness This is Dr. Lopez dictating an H/P on this patient The patient was interviewed and examined IMPRESSION / ASSESSMENT: Recurrent SVT, very symptomatic Nonsustained VT Mild CAD, no evidence for ischemia, type 2 diabetes Nonsustained ventricular tachycardia recurrent, longer episodes No QRS fractionation on twelve-lead EKG Cardiac MRI reveals mild delayed enhancement in the inferior wall, inferior septum and inferior lateral wall Left ventricular ejection fraction by MRI 42% RV is normal PLAN: Diagnostic EP study for evaluation management of SVT and possible radiofrequency ablation Restratification for nonischemic cardiomyopathy in the presence of delayed enhancement in the inferior wall and longer runs of nonsustained ventricular tachycardia, recurrent Maximize cardiomyopathy/heart failure medications HPI Patient continues to experience recurrent episodes of palpitations He gets dizzy with presyncope We have also documented nonsustained VT His cardiac MRI revealed evidence of delayed enhancement with reduced LV systolic function of 42%. The delayed enhancement was in the inferior wall extending laterally in the septum ROS: No fever chills or rigors, no cough, phlegm or expectoration, no nausea, vomiting or diarrhea, no hematuria, dysuria, no musculoskeletal complaints, no strokes or seizures, no skin lesions. EXAMINATION: Hypertensive today 172/88 mmHg, sinus tachycardia off beta-blockers Heart sounds regular tachycardic but no murmurs Breath sounds are clear no rhonchi no crackles Central obesity No lower extremity edema REVIEW OF LABS, ECG & MEDICAL DATA Glucose 219 Physical Exam Vitals: Vital Signs Temp Pulse Resp BP Pulse Ox 05/28/23 08:15 97.2 F L 87 18 172/88 99 Intake and Output 05/27/23 05/28/23 05/28/23 22:59 06:59 14:59 Intake Total 910 Balance 910 Intake: IV 910 Other: Weight 118.3 kg Past Medical History Past Medical History: Chest Pain / Angina, Diabetes Mellitus, GERD/Reflux, Hyperlipidemia, Hypertension, Pneumonia Additional Past Medical History / Comment(s): See Dr Lopez's H&P,numbness down back of both legs History of Any Multi-Drug Resistant Organisms: None Reported Past Surgical History: Appendectomy, Back Surgery, Hernia Repair, Orthopedic Surgery Additional Past Surgical History / Comment(s): arthroscopic left knee surg. Past Anesthesia/Blood Transfusion Reactions: No Reported Reaction Additional Past Anesthesia/Blood Transfusion Reaction / Comment(s): no hx blood transfison Smoking Status: Former smoker - Past Family History Brother(s) Family Medical History: Cancer Physical Examination Vital Signs Temp Pulse Resp BP Pulse Ox 05/28/23 08:15 97.2 F L 87 18 172/88 99 Intake and Output 05/27/23 05/28/23 05/28/23 22:59 06:59 14:59 Intake Total 910 Balance 910 Intake: IV 910 Other: Weight 118.3 kg Results Current Medications Generic Name Dose Route Start Last Admin Trade Name Freq PRN Reason Stop Dose Admin Sodium Chloride 1,000 mls @ 20 mls/hr 05/28/23 06:09 05/28/23 08:17 Saline 0.9% IV 06/27/23 06:10 700 mls .Q24H PARISA Administration Intake and Output 05/27/23 05/28/23 05/28/23 22:59 06:59 14:59 Intake Total 910 Balance 910 Intake: IV 910 Other: Weight 118.3 kg Patient Weight 05/29/23 06:59 Weight 118.3 kg
--- NOTE | 2023-05-28 13:45 | P.EPPROC ---
- EP Procedure Note Electrophysiology Procedure Note: Procedure Diagnostic EP study/mapping and ablation for SVT Diagnostic EP study for risk stratification for VT/sudden Diagnosis Recurrent symptomatic SVT with RVR despite medical treatment Recurrent episodes of nonsustained VT, longer episodes now Reduced LV systolic function of 42% by cardiac MRI Delayed enhancement of a nonischemic type pattern in the inferior wall extending into the inferior lateral and inferior septal wall Nonobstructive CAD, diabetes type 2, hypertension Plan Stop metoprolol. Start carvedilol and maximize Recommend Entresto and spironolactone and SGLT2 inhibitors Follow-up with Dr. Hopkins Details Patient was brought to the EP lab in a fasting state. Written informed consent was obtained prior to the procedure. He was hypotensive initially therefore IV hydralazine was administered. He had been off beta-blockers for 3 days. Conscious sedation provided. Venous access obtained in the right left femoral veins. Diagnostic catheters positioned in the high right atrium His bundle area coronary sinus and right ventricle apex as well as RV septum. Sinus cycle length 458 ms, IA interval 120 ms, QRS 84 ms and QT 303 ms AH 44 and HV 41 ms Sinus node recovery times at a pacing cycle length of 400 ms was 507 ms. Patient had sinus tachycardia for most of the study even in the baseline state, off beta-blockers AV node Wenckebach block revealed slow pathway conduction antegradely at 280 ms VA Wenckebach block 250 ms During straight pacing tachycardia was initiated. This was consistent with AV node reentry. Short septal time and a VAV response with a long post pacing interval noted Atrial extra stimulation revealed atrial ERP of 400/less than 200 ms. Extrastimulation from the coronary sinus 400/200/200 ms Rony response noted with Para-Hisian pacing VA ERP = 400/< 200 ms Deflectable long sheath placed. Irrigated tip mapping and ablation catheter placed. His bundle tagged. Coronary sinus os at the floor and roof tagged Mapping of the slow pathway performed Junctional rhythm obtained with RF ablation with good contact force and power The tachycardia is rendered noninducible Repeat study revealed AV node Wenckebach block at 250 ms Straight pacing did not reveal any evidence for AV rony reentry either from the high right atrium or from the coronary sinus Extrastimulation up to double extrastimuli from 2 sites did not reveal any inducible SVT or even echo beats In fact the VA Wenckebach block in the baseline state was greater than 400 ms post ablation IA interval normal Isopril was used high-dose AV node Wenckebach block improved to 210 ms VA Wenckebach block improved to 250 ms There was no evidence for any inducible SVT Atrial extra stimulation performed no SVT induced Following that a detailed ventricular extra stimulation protocol was performed to look for any inducible sustained monomorphic VT, given his reduced cardiomyopathy with inferior nonischemic 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 Patient tolerated procedure well without any acute complications
--- NOTE | 2023-05-28 13:49 | P.PRLE ---
RE: Jaime Szymanski Dear Stacey Sandoval Stephon, date of 1960 underwent a diagnostic EP study for evaluation management of SVT as well as long runs of nonsustained VT He underwent successful mapping and ablation for AV jasper reentry and the tachycardia is rendered noninducible However he has long runs of nonsustained VT with nonobstructive CAD. He underwent a cardiac MRI which revealed mild scarring in the inferior lateral, inferior and inferoseptal hurtado with a reduced LV systolic function of 42% that explains his nonsustained VT episodes He underwent a detailed ventricular stimulation protocol but he was noninducible for any ventricular tachycardia or VF I will switch him from metoprolol to carvedilol since his blood pressure is also quite high in the future switch to Entresto, Aldactone and Farxiga Will continue to follow with you and with Dr. Hopkins as before Sincerely Humberto Lopez
[2023-05-28] MEDS ORDERED: ACETAMINOPHEN TAB 325 MG TAB PO PRN (13:52)
[2023-05-28] MEDS: carvediloL 12.5 MG TAB PO SCH (14:19)
[2023-05-28] MEDS: ACETAMINOPHEN IV (For NPO) 1,000 MG in EMPTY BAG 1 BAG IVPB ONE (16:48)
[2023-05-28 17:29] LABS: Glucose,Whole Blood 229 mg/dL (70-110)
--- NOTE | 2023-05-28 19:41 | XR ---
EXAMINATION TYPE: XR chest 2V DATE OF EXAM: 05/28/2023 COMPARISON: 03/02/2020 HISTORY: Hemoptysis TECHNIQUE: Frontal and lateral views of the chest are obtained. FINDINGS: There is no focal air space opacity, pleural effusion, or pneumothorax seen. The cardiac silhouette size is within normal limits. The osseous structures are intact. IMPRESSION: No acute cardiopulmonary process.
[2023-05-28] MEDS: MELOXICAM 7.5 MG TAB PO SCH (20:05)
[2023-05-28] MEDS: ASPIRIN 81 MG PO SCH (20:05)
[2023-05-28 20:06] LABS: Glucose,Whole Blood 253 mg/dL (70-110)
[2023-05-28] MEDS: metFORMIN 500 MG TAB PO SCH (20:06)
[2023-05-28 22:25] VITALS: RESP 16
[2023-05-29 03:58] VITALS: TEMP 98.1
[2023-05-29 06:30] LABS: Glucose,Whole Blood 237 mg/dL (70-110)
[2023-05-29 08:55] VITALS: BP 152/87; PULSE 111
[2023-05-29] MEDS: SPIRONOLACTONE 25 MG TAB PO SCH (09:07)
[2023-05-29] MEDS: ATORVASTATIN 40 MG TAB PO SCH (09:07)
[2023-05-29] MEDS: PANTOPRAZOLE 40 MG TABLET PO SCH (09:07)
[2023-05-29] MEDS: lisinopriL 20 MG TAB PO SCH (09:07)
[2023-05-29] MEDS: carvediloL 12.5 MG TAB PO SCH (09:07)
--- NOTE | 2023-05-29 09:53 | P.DS ---
Providers Attending physician: Humberto Lopez Primary care physician: Stacey Boykin [facility] Course: This is a 62-year-old male who underwent SVT ablation with Dr. Lopez on 05/28/2023. Patient is doing well postprocedure with no complications noted. Patient's heart rate remains slightly tachycardic. His rhythm is sinus mechanism. His metoprolol was changed to carvedilol and his dose was increased this morning to [address] Lopez recommends adding Entresto on an outpatient basis. He also recommends adding Corlanor if patient remains tachycardic despite maximizing his beta-rosemarie therapy. The patient was deemed stable for discharge from a cardiac standpoint. Please see EMR for further hospital course details. Discharge diagnosis Recurrent symptomatic SVT with RVR despite medical treatment Recurrent episodes of nonsustained VT, longer episodes now Reduced LV systolic function of 42% by cardiac MRI Delayed enhancement of a nonischemic type pattern in the inferior wall extending into the inferior lateral and inferior septal wall Nonobstructive CAD, diabetes type 2, hypertension Nurse practitioner note has been reviewed by physician. Signing provider agrees with the documented findings, assessment, and plan of care documented by [employer] [employer] as a scribe. Plan - Discharge Summary Discharge Rx Participant: Yes New Discharge Prescriptions: New carvediloL [Coreg] 25 mg PO BID #180 tab Spironolactone 25 mg PO DAILY #90 tab Continue Aspirin [Adult Low Dose Aspirin EC] 81 mg PO BID Pantoprazole Sodium [Protonix] 40 mg PO DAILY Celecoxib [CeleBREX] 200 mg PO BID lisinopriL [Zestril] 40 mg PO DAILY Dulaglutide [Trulicity] 1.5 mg SQ SA #0 metFORMIN HCL [Glucophage] 500 mg PO BID Rosuvastatin Calcium 20 mg PO DAILY Cholecalciferol (Vitamin D3) [Vitamin D3 (1250 Mcg = 50,000 Iu)] 1,250 mcg PO SA Ascorbic Acid [Vitamin C] 500 mg PO DAILY Discontinued Metoprolol Tartrate [Lopressor] 50 mg PO BID Discharge Medication List Aspirin [Adult Low Dose Aspirin EC] 81 mg PO BID 07/26/15 [History] Celecoxib [CeleBREX] 200 mg PO BID 03/12/20 [History] Dulaglutide [Trulicity] 1.5 mg SQ SA #0 03/12/20 [History] Pantoprazole Sodium [Protonix] 40 mg PO DAILY 03/12/20 [History] lisinopriL [Zestril] 40 mg PO DAILY 03/12/20 [History] Ascorbic Acid [Vitamin C] 500 mg PO DAILY 05/24/23 [History] Cholecalciferol (Vitamin D3) [Vitamin D3 (1250 Mcg = 50,000 Iu)] 1,250 mcg PO SA 05/24/23 [History] Rosuvastatin Calcium 20 mg PO DAILY 05/24/23 [History] metFORMIN HCL [Glucophage] 500 mg PO BID 05/24/23 [History] Spironolactone 25 mg PO DAILY #90 tab 05/28/23 [Rx] carvediloL [Coreg] 25 mg PO BID #180 tab 05/29/23 [Rx] Follow up Appointment(s)/Referral(s): Bhanu Hopkins DO [STAFF PHYSICIAN] - 06/04/23 7:45 am
[2023-06-02] MEDS ORDERED: NON FORMULARY DRUG (Dulaglutide [Trulicity] 1.5 MG/0.5 ML Each) SQ SCH (09:00)
== END 2023-05-29 11:56 | disposition home or self-care (01) ==
LOC: CATHEP 07:51 → 6NMEDSUR 13:16 → CATHEP 05-29 11:56
PROVIDERS: ATTEND Internal Medicine Clinical Cardiac Electrophysiology
DX: I47.19 Other supraventricular tachycardia (principal); E11.9 Type 2 diabetes mellitus without complications; E78.5 Hyperlipidemia, unspecified; I11.0 Hypertensive heart disease with heart failure; I50.9 Heart failure, unspecified; I47.20 Ventricular tachycardia, unspecified; I42.8 Other cardiomyopathies; I25.10 Atherosclerotic heart disease of native coronary artery without angina pectoris; K21.9 Gastro-esophageal reflux disease without esophagitis; Z87.891 Personal history of nicotine dependence; Z79.899 Other long term (current) drug therapy
CPT/HCPCS: 93623; 93653; 86900; 86901; 84443; 86850; 71046; C1894; C1769; C1760 ×2; C1766; C1730 ×3; C1732; J2001; J1644